=== PATIENT | female | born 1985 | race Caucasian/White ===

== ENCOUNTER 2017-02-10 16:59 | Emergency (ER) | payer SELFPAY ==
[~2017-02-10] VITALS: Ht 162.6 cm; Wt 70.2 kg
[2017-02-10 17:00] VITALS: BP 124/78
== END 2017-02-10 18:44 | disposition home or self-care (01) ==
LOC: ED 18:30
DX: S66.911A Strain of unspecified muscle, fascia and tendon at wrist and hand level, right hand, initial encounter (principal); X58.XXXA Exposure to other specified factors, initial encounter; Y93.89 Activity, other specified; Y92.89 Other specified places as the place of occurrence of the external cause; Y99.8 Other external cause status
CPT/HCPCS: 99284

== ENCOUNTER 2017-11-07 22:45 | Emergency (ER) | payer MEDICAID, OTHER ==
[~2017-11-07] VITALS: Ht 162.6 cm; Wt 67.0 kg
[2017-11-07 23:36] LABS: MEAN CORPUSCULAR VOLUME 63.5 fL (80-100); MEAN PLATELET VOLUME 7.3 fL (7.4-10.4); PLATELET COUNT 462 x10^3/uL (130-400); RED BLOOD COUNT 2.71 x10^6/uL (3.82-5.3)
[2017-11-07 23:37] LABS: MEAN CORPUSCULAR HGB CONC 28.3 g/dL (32.4-35.8)
[2017-11-07 23:59] LABS: INTERNATIONAL NORMALIZED RATIO 0.97 (0.93-1.1)
[2017-11-08] VITALS (20 sets, daily range): BP systolic 108–132; BP diastolic 65–87
[2017-11-08] LABS: MD YES
[2017-11-08] MEDS ORDERED: HYDROcodone/APAP 5/325 TABLET PO ONE
[2017-11-08] MEDS ORDERED: SODIUM CHLORIDE FLUSH 10ML SYR IVF ONE
[2017-11-08 00:03] LABS: ANISOCYTOSIS 1+; EOS#(MANUAL) 0.14 x10^3/uL (0.0-0.4); EOS% (MANUAL) 2 % (1-7); HYPOCHROMIA 2+; LYMPH#(MANUAL) 2.77 x10^3/uL (1-3.4); LYMPHS% (MANUAL) 39 % (22-44); MONOS#(MANUAL) 0.07 x10^3/uL (0.3-2.7); MONOS% (MANUAL) 1 % (2-9); SEG#(MANUAL) 4.12 x10^3/uL (1.8-6.8); SEGS% (MANUAL) 58 % (42-75)
[2017-11-08 00:04] LABS: MICROCYTOSIS 1+
[2017-11-08 00:05] LABS: <PLATELET ESTIMATE> INCREASED; <PLT MORPHOLOGY> NORMAL PLT MORPH
[2017-11-08] MEDS ORDERED: HYDROcodone/APAP 5/325 TABLET ONE (00:06)
[2017-11-08] MEDS ORDERED: MORPHINE SULFATE 4 MG/ML, 1ML IVPush ONE (01:30)
[2017-11-08] MEDS ORDERED: MORPHINE SULFATE 4 MG/ML, 1ML ONE (01:38)
[2017-11-08] MEDS ORDERED: KETOROLAC 30 MG/1 ML ONE (02:48)
[2017-11-08] MEDS ORDERED: KETOROLAC 30 MG/1 ML IM ONE (03:00)
== END 2017-11-08 07:02 | disposition home or self-care (01) ==
LOC: ED 23:59
DX: K08.89 Other specified disorders of teeth and supporting structures (principal); D62 Acute posthemorrhagic anemia; N93.8 Other specified abnormal uterine and vaginal bleeding; D25.1 Intramural leiomyoma of uterus
CPT/HCPCS: 36415; 36430; 76830; 84703; 85025; 85610; 85730; 86850; 86900; 86923; 96372; 96374; 99291; J1885; P9016

== ENCOUNTER 2017-11-16 01:54 | Emergency (ER) | payer MEDICAID ==
[~2017-11-16] VITALS: Ht 162.6 cm; Wt 66.1 kg
[2017-11-16 01:57] VITALS: BP 127/85
[2017-11-16] MEDS ORDERED: SODIUM CHLORIDE FLUSH 10ML SYR IVF ONE (02:30)
[2017-11-16] MEDS ORDERED: SODIUM CHLORIDE 0.9% 1,000ML IVBOLUS ONE (02:30)
[2017-11-16 02:57] LABS: ALANINE AMINOTRANSFERASE 21 U/L (12-78); ALBUMIN 3.2 g/dL (3.4-5.0); ANION GAP 7 mmol/L (5-15); CALCIUM 8.2 mg/dL (8.5-10.1); CHLORIDE 108 mmol/L (98-107); CREATININE 0.88 mg/dL (0.55-1.02)
[2017-11-16 03:02] LABS: ALKALINE PHOSPHATASE 52 U/L (45-117); BILIRUBIN,TOTAL 0.3 mg/dL (0.2-1.0); TOTAL PROTEIN 7.5 g/dL (6.4-8.2)
[2017-11-16 03:15] LABS: MEAN CORPUSCULAR HEMOGLOBIN 24.1 pg (27.0-34.8); MEAN CORPUSCULAR HGB CONC 31.2 g/dL (32.4-35.8); MEAN PLATELET VOLUME 7.5 fL (7.4-10.4); PLATELET COUNT 577 x10^3/uL (130-400); RED BLOOD COUNT 4.65 x10^6/uL (3.82-5.3); RED CELL DISTRIBUTION WIDTH 30.8 % (9.6-15.2)
[2017-11-16 03:30] LABS: MD YES
[2017-11-16 03:32] LABS: EOS#(MANUAL) 0.08 x10^3/uL (0.0-0.4); EOS% (MANUAL) 1 % (1-7); LYMPHS% (MANUAL) 31 % (22-44); MONOS#(MANUAL) 0.67 x10^3/uL (0.3-2.7); MONOS% (MANUAL) 8 % (2-9); SEG#(MANUAL) 5.04 x10^3/uL (1.8-6.8); SEGS% (MANUAL) 60 % (42-75)
[2017-11-16 03:33] LABS: <PLATELET ESTIMATE> INCREASED; ANISOCYTOSIS 1+; HYPOCHROMIA 2+; MICROCYTOSIS 1+; OVALOCYTES 1+
[2017-11-16 03:34] LABS: LARGE PLATELETS 1+
== END 2017-11-16 04:02 | disposition home or self-care (01) ==
LOC: ED 02:39
DX: N93.8 Other specified abnormal uterine and vaginal bleeding (principal)
CPT/HCPCS: 36415; 80053; 84703; 85025; 99284; J7030

== ENCOUNTER → 2018-06-16 | Outpatient (CLI) | payer MEDICAID ==
[~2018-06-16] MED LIST: None per pt
[2018-06-16 11:50] LABS: MEAN CORPUSCULAR HEMOGLOBIN 19.4 pg (27.0-34.8); MEAN CORPUSCULAR VOLUME 66.8 fL (80-100); MEAN PLATELET VOLUME 7.1 fL (7.4-10.4); PLATELET COUNT 544 x10^3/uL (130-400); RED BLOOD COUNT 3.51 x10^6/uL (3.82-5.3); RED CELL DISTRIBUTION WIDTH 22.6 % (9.6-15.2)
[2018-06-16 12:11] LABS: MD YES
[2018-06-16 12:14] LABS: EOS#(MANUAL) 0.33 x10^3/uL (0.0-0.4); EOS% (MANUAL) 5 % (1-7); LYMPH#(MANUAL) 2.64 x10^3/uL (1-3.4); LYMPHS% (MANUAL) 40 % (22-44); MONOS% (MANUAL) 3 % (2-9); SEG#(MANUAL) 3.43 x10^3/uL (1.8-6.8); SEGS% (MANUAL) 52 % (42-75)
[2018-06-16 12:15] LABS: ANISOCYTOSIS 2+; HYPOCHROMIA 3+; MICROCYTOSIS 2+
[2018-06-16 12:16] LABS: <PLATELET ESTIMATE> INCREASED; <PLT MORPHOLOGY> NORMAL PLT MORPH; OVALOCYTES 1+
== END | disposition home or self-care (01) ==
LOC: STAR 10:37
PROVIDERS: ATTEND Obstetrics & Gynecology
DX: Z01.818 Encounter for other preprocedural examination (principal); D25.9 Leiomyoma of uterus, unspecified; N93.9 Abnormal uterine and vaginal bleeding, unspecified; R93.89 Abnormal findings on diagnostic imaging of other specified body structures
CPT/HCPCS: 36415; 71046; 84703; 85025

== ENCOUNTER 2018-06-22 09:12 | Day surgery (SDC) | payer MEDICAID ==
[2018-06-16 11:01] VITALS: BP 103/66
[~2018-06-22] VITALS: Ht 162.6 cm; Wt 63.6 kg
[2018-06-22] MEDS ORDERED: LACTATED RINGERS 1,000 ML IV SCH (09:33)
[2018-06-22] MEDS ORDERED: MIDAZOLAM 1 MG/ML, 2ML ONE (09:49)
[2018-06-22] MEDS ORDERED: FENTANYL PF 250 MCG/5ML ONE (09:49)
[2018-06-22] MEDS ORDERED: LIDOCAINE-MPF 2% ,5ML ONE (09:50)
[2018-06-22] MEDS ORDERED: PROPOFOL 10 MG/ML, 20ML ONE (09:50)
[2018-06-22] MEDS ORDERED: CEFOTETAN 2 GM ONE (09:51)
[2018-06-22] MEDS ORDERED: WATER-INJECTION,STERILE 10 ML IV ONE (09:51)
[2018-06-22] MEDS ORDERED: DEXAMETHASONE 4 MG/ML, 1ML ONE ×2 (09:53)
[2018-06-22] MEDS ORDERED: ONDANSETRON 2MG/ML, 2ML ONE ×2 (09:53)
[2018-06-22 09:56] LABS: MD YES; MEAN CORPUSCULAR HEMOGLOBIN 18.8 pg (27.0-34.8); MEAN CORPUSCULAR VOLUME 65.1 fL (80-100); MEAN PLATELET VOLUME 7.2 fL (7.4-10.4); PLATELET COUNT 564 x10^3/uL (130-400); RED BLOOD COUNT 3.83 x10^6/uL (3.82-5.3); RED CELL DISTRIBUTION WIDTH 22.4 % (9.6-15.2)
[2018-06-22] MEDS ORDERED: GLYCOPYRROLATE 0.4 MG/2 ML, 2ML ONE (09:56)
[2018-06-22] MEDS ORDERED: NEOSTIGMINE 1 MG/ML, 10ML ONE (09:56)
[2018-06-22] MEDS ORDERED: SCOPOLAMINE PATCH, 1.5MG PATCH.TD72 TD ONE (10:00)
[2018-06-22] MEDS ORDERED: GABAPENTIN 300 MG CAPSULE PO ONE (10:00)
[2018-06-22 10:03] LABS: HCG UR SG 1.018 (1.003-1.030)
[2018-06-22] MEDS ORDERED: BUPIVACAINE/PF 0.25% ONE (10:08)
[2018-06-22] MEDS ORDERED: SILVER NITRATE STICK TP ONE (10:09)
[2018-06-22] MEDS ORDERED: EPINEPHRINE 1 MG/ML, 1ML ONE (10:09)
[2018-06-22 10:15] LABS: EOS#(MANUAL) 0.35 x10^3/uL (0.0-0.4); EOS% (MANUAL) 6 % (1-7); LYMPHS% (MANUAL) 31 % (22-44); MONOS#(MANUAL) 0.12 x10^3/uL (0.3-2.7); MONOS% (MANUAL) 2 % (2-9); SEG#(MANUAL) 3.54 x10^3/uL (1.8-6.8); SEGS% (MANUAL) 61 % (42-75)
[2018-06-22 10:17] LABS: ANISOCYTOSIS 2+; HEMOGRAM NOTE RECHECKED; HYPOCHROMIA 2+; MEAN CORPUSCULAR HGB CONC 28.8 g/dL (32.4-35.8); MICROCYTOSIS 2+
[2018-06-22 10:18] LABS: <PLATELET ESTIMATE> INCREASED; <PLT MORPHOLOGY> NORMAL PLT MORPH; OVALOCYTES 1+; POLYCHROMASIA 1+
[2018-06-22] MEDS ORDERED: KETOROLAC 30 MG/1 ML ONE (10:31)
[2018-06-22] MEDS ORDERED: VASOPRESSIN 20 UNIT/ML, 1ML ONE (10:50)
[2018-06-22] MEDS ORDERED: ALBUTEROL SULFATE 2.5 MG/3 ML NPPB PRN (11:00)
[2018-06-22] MEDS ORDERED: OXYcodone 5 MG/5 ML ORAL.SOL UDC PO PRN (11:00)
[2018-06-22] MEDS ORDERED: HALOPERIDOL 5 MG/ML IV PRN (11:00)
[2018-06-22] MEDS ORDERED: HYDROmorphone 2 MG/ML, 1ML IVPush PRN (11:00)
[2018-06-22] MEDS ORDERED: MEPERIDINE/PF 25MG/0.5ML IVPush PRN (11:00)
[2018-06-22] MEDS ORDERED: hydrALAzine 20 MG/ML, 1ML IV PRN (11:00)
[2018-06-22] MEDS ORDERED: LORazepam 2 MG/ML, 1ML IVPush PRN (11:00)
[2018-06-22] MEDS ORDERED: PROMETHAZINE 25 MG/ML, 1ML IV PRN (11:00)
[2018-06-22] MEDS: FENTANYL PF 100 MCG/2ML IV PRN ×2 (11:35→12:02)
[2018-06-22] MEDS ORDERED: OXYcodone 5 MG/5 ML ORAL.SOL UDC ONE (11:38)
[2018-06-22] MEDS ORDERED: FENTANYL PF 100 MCG/2ML ONE (11:38)
== END 2018-06-22 13:35 | disposition home or self-care (01) ==
LOC: OUT 09:12 → EDSTATUS 12:30 → OUT 13:35
PROVIDERS: ATTEND Obstetrics & Gynecology
DX: D25.0 Submucous leiomyoma of uterus (principal); N93.9 Abnormal uterine and vaginal bleeding, unspecified; D50.0 Iron deficiency anemia secondary to blood loss (chronic); F17.210 Nicotine dependence, cigarettes, uncomplicated; Z98.890 Other specified postprocedural states
CPT/HCPCS: 36415; 58145; 58558; 81025; 85025; 86850; 86900; 86923; 88305; J0171; J1100; J1885; J2250; J2405; J2704; J2710; J3010; J3490

== ENCOUNTER 2020-10-01 13:49 | Emergency (ER) | payer MEDICAID ==
[~2020-10-01] VITALS: Ht 162.6 cm; Wt 75.6 kg
[2020-10-01 14:04] VITALS: BP 127/58
--- NOTE | 2020-10-01 15:04 | NUR ---
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
== END 2020-10-01 15:39 | disposition home or self-care (01) ==
LOC: ED 15:15
DX: O26.892 Other specified pregnancy related conditions, second trimester (principal); R10.30 Lower abdominal pain, unspecified; Z3A.16 16 weeks gestation of pregnancy
CPT/HCPCS: 99281

== ENCOUNTER 2020-10-01 15:43 | Outpatient (CLI) | payer SELFPAY ==
[2020-10-01 18:24] LABS: BASOPHILS % (AUTO) 1 % (0-1); EOSINOPHILS % (AUTO) 2 % (1-7); LYMPHOCYTES % (AUTO) 14 % (22-44); MEAN CORPUSCULAR HEMOGLOBIN 33.2 pg (27.0-34.8); MEAN CORPUSCULAR HGB CONC 33.6 g/dL (32.4-35.8); MEAN PLATELET VOLUME 7.2 fL (7.4-10.4); MONOCYTES % (AUTO) 2 % (2-9); NEUTROPHILS % (AUTO) 81 % (42-75); PLATELET COUNT 345 x10^3/uL (130-400); RED BLOOD COUNT 4.08 x10^6/uL (3.82-5.3); RED CELL DISTRIBUTION WIDTH 13.3 % (9.6-15.2)
[2020-10-01 18:27] LABS: MICROSCOPIC INDICATED
[2020-10-01 18:30] LABS: AMPHETAMINE SCREEN, URINE Positive (Negative); BENZODIAZEPINE SCREEN, URINE Negative (Negative); CANNABINOID SCREEN, URINE Positive (Negative); COCAINE SCREEN, URINE Negative (Negative); METHADONE SCREEN, URINE Negative (Negative); OPIATE SCREEN, URINE Negative (Negative)
[2020-10-01 18:31] LABS: BARBITURATE SCREEN, URINE Negative (Negative)
[2020-10-01 18:33] LABS: MD NO
== END 2020-10-01 18:58 | disposition home or self-care (01) ==
LOC: LDOP 15:43
PROVIDERS: ATTEND Obstetrics & Gynecology
DX: O09.91 Supervision of high risk pregnancy, unspecified, first trimester (principal); O26.891 Other specified pregnancy related conditions, first trimester; R10.9 Unspecified abdominal pain; Z3A.14 14 weeks gestation of pregnancy
CPT/HCPCS: 36415; 59025; 76815; 80307; 81001; 84703; 85025; 86592; 86762; 86850; 86900; 87077; 87086; 87147; 87186; 87340; 87806; G0475